=== PATIENT | female | born 1960 | race Caucasian/White ===

== ENCOUNTER → 2018-07-19 | Outpatient (CLI) | payer BC, OTHER ==
[~2018-07-19] MED LIST: ADULT LOW DOSE81 MG; ASPIRIN325; ASPIRIN325 PO; ATIVAN1 MG PO; CYMBALTA30 MG PO; DICLOFENAC POTA50 MG PO; DICLOFENAC SODI75 MG PO; FUROSEMIDE 20 M20 M1; IMDUR 30 MG TAB30 M1 PO; IRON PO; IRON325; K-DUR 20 MEQ T20 MEQ; LEVAQUIN 500 M500 M2 PO; LEXAPRO20 MG; LIPITOR 20 MG T20 M1 PO; MAVIK2 MG PO; MS CONTIN15 MG PO; NORVASC 5 MG TAB5 MG PO; OXYCONTIN CR 4040 M1; PREDNISONE50 MG PO; PREMARIN1.25 MG; PROAIR HFA8.5 GM INH; PROBIOTIC1 EAC3 PO; PROTONIX40 M2 PO; TOPAMAX 25 MG T25 M1 PG; VERAPAMIL HCL40 MG; VITAMIN D1000 UNI1 PO; VITAMIN D2000 UNIT PO
--- NOTE | 2018-07-22 17:20 | PAINCON ---
[address] [address] PAIN MANAGEMENT CONSULTATION Name: PETERSON LOO Room: [facility] [place] JOSE DavisPauline#: [id number] Admission: 07/19/18 Attend Phys: Renetta Zheng MD Discharge: Date of : 64 Report #: [id number] THIS REPORT FOR: //name// CC: Shadia Zheng DATE OF SERVICE: 07/19/2018 PRIMARY CARE PHYSICIAN: Shadia Amaral M.D. CHIEF COMPLAINT: Left hip and left leg pain. HISTORY OF PRESENT ILLNESS: The patient is a 58-year-old female who has been referred to the pain clinic for evaluation. The patient has been having pain and discomfort since 05/2018. Describes pain as an aching pain with discomfort that radiates down to the left side of her leg and into her ankle. She has a history of left hip replacement. She denies any trauma. States that she went to sleep. When she awoke, she noticed pain and discomfort in the left leg with pain that radiated down into the leg. Denies any bowel or bladder dysfunction. She has continued to do exercises to help strengthen her leg. These exercises did not change the characteristic of her pain and discomfort. She has returned to the pain clinic. She was given a Medrol Dosepak by her primary physician. Overall, she has noticed an improvement in the pain. Rates it as a 0/10. Does have some numbness and tingling in the left anterior calf area. ALLERGIES: MINOCYCLINE. CURRENT MEDICATIONS: Topiramate 50 mg b.i.d., baby aspirin 325 mg daily, vitamin D 1000 units b.i.d., biotin 1000 mcg daily, Women's energy 18/400/80 daily, Benzaclin 1% b.i.d., duloxetine 60 mg, amlodipine 5 mg, methylprednisolone 4 mg. The patient took a Medrol Dosepak, hydrocodone 5/325 mg 1 p.o. q.4-6 hours. PAST MEDICAL HISTORY: 1. Patent foramen ovale. 2. Depression. 3. Degenerative disk disease of back. 4. Hypertension. 5. GERD. 6. Migraines. 7. Anemia. 8. Arthritis. PAST SURGICAL HISTORY: Surgery x 2, , total hysterectomy, bilateral carpal tunnel release, ventral hernia repair, tonsillectomy, [place] [address] PAIN MANAGEMENT CONSULTATION Name: PETERSON LOO [facility]: [facility]#: [id number] Admission: 07/19/18 Attend Phys: Renetta Zheng MD Discharge: Date of : 64 Report #: [id number] repair, left complete hip replacement in 2016, hysterectomy was in 1991, cholecystectomy in 1984, was in 1983 and 1988, left carpal tunnel was in 1989, right carpal tunnel in 2000. SOCIAL HISTORY: She is disabled, has been disabled since 2000. REVIEW OF SYSTEMS: Generally good health, decreased appetite, wears glasses, sore throat, voice change, heart trouble, chest pain, angina, palpitations, swelling in ankles and feet, chronic frequent cough, wheezing, bowel movement, musculoskeletal joint pain, stiffness, weakness of muscles, muscle pain, cramps, back pain, difficulty walking, change in hair, varicose veins, recurrent headaches, numbness and tingling sensation in the left lower leg, depression, insomnia, slow to heal, bleeding tendencies, anemia. LABORATORY DATA: MRI of the lumbar spine dated 06/16/2018. 1. L1-L2. Small diffuse disk bulge present and there is mild facet hypertrophy. There is no spinal canal or foraminal stenosis. Thecal sac 1.4 cm AP. 2. L2-L3. Diffuse disk bulge is present eccentric to the right. Mild to moderate facet hypertrophy is present. Findings result in a mild to moderate right and mild left foraminal stenosis. Thecal sac 1.3 cm. 3. L3-L4. There is a diffuse disk bulge with a superimposed left subarticular disk protrusion. Moderate facet hypertrophy is present. These findings result in moderate right and severe left foraminal stenosis. PAIN CLINIC ASSESSMENT AND PQRS: 1. The patient is not being treated for osteoarthritis or rheumatoid arthritis. 2. Height 5 feet 5 inches, weight 262 pounds, BMI is 43. 3. Vital Signs: Blood pressure 146/80, heart rate 69, respiratory rate 18, room air saturation 96%, temperature 98.3. 4. Pain score 0 out, 0/10, but has numbness in the anterior portion of her left leg. 5. Fall risk. The patient has not fallen in the last 3 months. 6. Blood thinner. The patient is not on a blood thinning medication. 7. Hypertension. The patient has not been treated for hypertension. 8. Opioid greater than 6 weeks. The patient is not receiving opioid medications on a long-term basis. 9. Risk assessment tool, low for opioid use. 9. Functional assessment tool. 10. Recreational drug use. The patient denies. 11. Tobacco: The patient denies. 12. Alcohol: The patient denies frequent use of alcoholic beverages. PHYSICAL EXAMINATION: GENERAL: The patient is a well-developed, somewhat obese, white female. Appears her stated age. She is alert and oriented x 3. Affect is appropriate. [address] [address] PAIN MANAGEMENT CONSULTATION Name: PETERSON LOO Room: [facility] [place] JOSE DavisPauline#: [id number] Admission: 07/19/18 Attend Phys: Renetta Zheng MD Discharge: Date of : 64 Report #: [id number] Speech is fluent. HEENT: Normocephalic, atraumatic. Extraocular eye muscles intact. Sclerae nonicteric. Mucous membranes are moist. NECK: Without adenopathy or JVD. The patient without significant scoliosis, kyphosis or lordosis. EXTREMITIES: Has pain and discomfort involving the low back area in the area of her left hip with pain that radiated down into the left L5 dermatomal distribution. The patient has some pain and discomfort. The patient has some discomfort in the anterior left L4-L5 dermatomal distribution on her left leg. There is some numbness and tingling in this distribution down to the level of her ankle. IMPRESSION: 1. Left leg pain, which has improved and now is rated as 0, but still has numbness in the L5 left dermatomal distribution. 2. Hypertension. 3. Colon problems. 4. Heart disease. 5. History of anemia. RECOMMENDATIONS: We discussed treatment options with the patient. At this juncture, she feels that her pain has continued to improve. Noted that the Medrol Dosepak was efficacious. She is not having significant amount of pain at this juncture. She indeed rates her pain as a 0/10. Does continue to have some numbness in the anterior portion in the L4-L5 distribution. The patient could try another conservative approach with another Medrol Dosepak in the future. Her pain continued to be a problem with numbness in this area. We could consider an epidural steroid injection. The patient will continue with her current medical regimen. She will consider use of nonsteroidal anti-inflammatory medication such as ibuprofen 800 mg 1 p.o. t.i.d. for 1 week. She will call us if she continues to have pain or notes recurrence of her pain. We would like to thank you for letting us participate in her care. We hope she continues to improve. <ELECTRONICALLY SIGNED> By: Renetta Zheng MD 07/22/18 1720 1541 [id number]. Davion Zheng MD /[facility]
== END ==
LOC: M.PC 05:25
DX: M25.552 Pain in left hip (principal); M79.605 Pain in left leg; I11.9 Hypertensive heart disease without heart failure; K63.9 Disease of intestine, unspecified; Z86.2 Personal history of diseases of the blood and blood-forming organs and certain disorders involving the immune mechanism

== ENCOUNTER → 2019-01-11 | Day surgery (SDC) | payer BC, OTHER ==
[~2019-01-11] MED LIST changes: +ABILIFY10 MG PO; +CENTRUM SILVER1 EAC4 PO; +CYMBALTA60 MG PO; +NORCO 5-325 TA1 EACH PO; +SINGULAIR 10 MG10 M1 PO; -TOPAMAX 25 MG T25 M1 PG; +TOPAMAX 25 MG T25 M1 PO; +TRANDOLAPRIL4 MG PO
--- NOTE | ~2019-01-11 | OP ---
[facility] [address] [place] [address] OPERATIVE REPORT Name: PETERSON LOO Room: [facility] Simon.Fay.#: [id number] Admission: 01/11/19 Attend Phys: Anastacio Smith Discharge: Date of : 64 Report #: [id number] THIS REPORT FOR: //name// CC: Anastacio Amaral DATE OF SERVICE: 01/11/2019 PREOPERATIVE DIAGNOSIS: Recurrent incarcerated ventral incisional hernia. POSTOPERATIVE DIAGNOSIS: Recurrent incarcerated ventral incisional hernia. PROCEDURE: Laparoscopic repair of recurrent incarcerated ventral incisional hernia with mesh. SURGEON: Anastacio Smith M.D. ANESTHESIA: General. ESTIMATED BLOOD LOSS: Minimal. SPECIMENS: Old mesh. DESCRIPTION OF PROCEDURE: After informed consent was obtained, the patient was brought to the operating room and placed supine. SCDs were placed and working. Preoperative antibiotics were administered, general anesthesia was induced. The abdomen was prepped and draped in the usual sterile fashion. A 5 mm incision was made in the left upper quadrant. A 5 mm trocar was placed under direct vision. Pneumoperitoneum was established. Left-sided 8 mm and 5 mm ports were placed. A right-sided 5 mm port was placed. She had incarcerated omentum in the defect around her umbilicus. This was a Mexican cheese type defect with approximately 3 defects. The defects measured approximately 5 x 5 cm altogether. The omentum was fully reduced. There was some old mesh that was in this area. I elected to remove it as it was just hanging there and not doing anything. This mesh had obviously migrated from the above more superior hernia repair that she had in 2003. This was incised with scissors and removed. It was sent as a specimen. A Ventralight mesh was brought into the field. This was trimmed to 15 x 15 cm. It was brought into the abdomen. It was brought up to the abdominal wall to cover the defects widely. I used 2 secure strap tackers to circumferentially tack around the mesh to keep it in place. Four transfascial 2-0 Ethibond sutures were placed using the suture passer. The defects were covered very widely. The [place] [address] OPERATIVE REPORT Name: PETERSON LOO CARLOS [id number] Admission: 01/11/19 Attend Phys: Anastacio Smith Discharge: Date of : 64 Report #: [id number] The ports were then removed under direct vision. The skin was closed with 4-0 Monocryl. Incisions were sealed with Dermabond. COMPLICATIONS: None. DISPOSITION: The patient was taken to recovery in satisfactory condition. By: [id number] Smith MD /nt
[2019-01-11 08:45] LABS: HEMATOCRIT 39.3 % (37.0-47.0); HEMOGLOBIN 13.1 gm/dL (12.0-15.0); MCH 28.7 pg (26.0-34.0); MCHC 33.5 g/dL (28.0-37.0); MCV 85.8 fL (80.0-100.0); MPV 6.9 fl. (7.2-11.1); RBC 4.58 mil/uL (4.20-5.00); RDW-CV 13.5 % (10.5-14.5); WBC 6.3 thou/uL (4.0-11.0)
[2019-01-11 08:53] LABS: CALCIUM 9.6 mg/dL (8.5-10.1); CREATININE 0.9 mg/dL (0.6-1.3)
--- NOTE | 2019-01-11 11:31 | EKG ---
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
--- NOTE | 2019-01-13 10:06 | PATH ---
[address] [address] PATHOLOGY RPT PROCEDURE Name: PETERSON LOO CARLOS Room: [facility] M.R.#: [id number] Admission: 01/11/19 Date of : 64 Discharge: Report #: [id number] Path Case #: [id number] [facility] Accession Number: [id number] . 01 Material submitted: . hernia - MESH . 01 Clinical history: . Ventral hernia . 02 Diagnosis: Gross diagnosis (mesh): - Mesh identified. (ADELA:pit 01/12/2019) QTP/01/12/2019 . 02 Electronically signed: . Xander Chavez MD, Pathologist NPI- [id number] . 01 Gross description: . The specimen is received in formalin, labeled "Peterson Strong, mesh". Received is a segment of white-robb mesh with a slight amount of adherent soft tissue measuring 4.8 x 2.0 x 1.5 cm in greatest dimensions. Gross photographs are taken. Sections are not submitted. (CAA; 01/12/2019) QAC/QAC . 02 Pathologist provided ICD-10: K43.9 . 02 CPT . 353166 Specimen Comment: A courtesy copy of this report has been sent to Specimen Comment: [phone], . Specimen Comment: Report sent to / DR GOMEZ Performed at: [address] [facility] [address], [place], [place] [id number] MD Cooper Sarkar MD Phone: [phone] Performed at: 02 [facility] [address] [place], [place] [id number] MD Xander Chavez MD Phone: [phone]
== END | disposition home or self-care (01) ==
LOC: M.SUR 08:17
PROVIDERS: Family Medicine
DX: K43.0 Incisional hernia with obstruction, without gangrene (principal); I10 Essential (primary) hypertension; F41.9 Anxiety disorder, unspecified; K21.9 Gastro-esophageal reflux disease without esophagitis; Z90.710 Acquired absence of both cervix and uterus; Z98.890 Other specified postprocedural states; Z79.82 Long term (current) use of aspirin; Z79.899 Other long term (current) drug therapy; Z90.49 Acquired absence of other specified parts of digestive tract; Z88.8 Allergy status to other drugs, medicaments and biological substances; Z86.73 Personal history of transient ischemic attack (TIA), and cerebral infarction without residual deficits; Z82.49 Family history of ischemic heart disease and other diseases of the circulatory system

== ENCOUNTER 2020-10-13 17:35 | Emergency (ER) | payer OTHER ==
[~2020-10-13] VITALS: Ht 165.1 cm; Wt 134.7 kg
[2020-10-13 18:07] LABS: ABSOLUTE BASOPHILS 0.1 thou/uL (0.0-0.2); ABSOLUTE EOSINOPHILS 0.2 thou/uL (0.0-0.7); ABSOLUTE LYMPHOCYTES 2.6 thou/uL (0.8-5.3); ABSOLUTE MONOCYTES 0.4 thou/uL (0.0-1.2); ABSOLUTE NEUTROPHILS 4.2 thou/uL (1.6-8.1); BASOPHILS 0.7 %; EOSINOPHILS 3.3 %; HEMATOCRIT 36.8 % (37.0-47.0); HEMOGLOBIN 12.4 gm/dL (12.0-15.0); LYMPHOCYTES 34.1 %; MCH 28.9 pg (26.0-34.0); MCHC 33.6 g/dL (28.0-37.0); MCV 85.9 fL (80.0-100.0); MONOCYTES 5.2 %; MPV 6.2 fl. (7.2-11.1); NUCLEATED RBCS 0 /100WBC; PLATELET COUNT* 257 thou/uL (150-400); POLYS 56.7 %; RBC 4.29 mil/uL (4.20-5.00); RDW-CV 13.9 % (10.5-14.5); WBC 7.5 thou/uL (4.0-11.0)
[2020-10-13] MEDS ORDERED: DOXYCYCLINE 10100 M2 PO (18:07)
[2020-10-13] MEDS ORDERED: HYDROCHLOROTHIA25 M2 (18:07)
[2020-10-13] MEDS ORDERED: [UNRECOGNIZED DRUG - OTHER] (18:08)
[2020-10-13] MEDS ORDERED: DRIZALMA SPRINK60 MG PO (18:08)
[2020-10-13] MEDS ORDERED: BIOTIN1 MG PO (18:08)
[2020-10-13] MEDS ORDERED: VITAMIN C500 M2 PO (18:09)
[2020-10-13] MEDS ORDERED: VITAMIN B-121000 MC2 SUBLING (18:09)
[2020-10-13 18:18] LABS: CALCIUM 9.4 mg/dL (8.5-10.1); CREATININE 1.1 mg/dL (0.6-1.3); POTASSIUM 3.2 mmol/L (3.5-5.1)
[2020-10-13 18:21] LABS: APTT 23.7 Seconds (25.0-31.3); PROTIME 10.3 Seconds (9.20-11.50)
[2020-10-13 18:31] LABS: ALBUMIN 3.7 g/dL (3.4-5.0); CK-MB MASS 2.9 ng/mL (<0.5-3.6); TOTAL BILIRUBIN 0.2 mg/dL (<0.1-1.0); TOTAL PROTEIN 7.1 g/dL (6.4-8.2)
[2020-10-13 18:42] VITALS: BP 174/77
--- NOTE | 2020-10-14 11:12 | EKG ---
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1960 Requested By: Sadi Aguilera Order Number: [id number] MD: Truman López Measurements Intervals [place] Rate: 78 P: 55 ID: 179 QRS: 54 QRSD: 104 T: 53 QT: 385 QTc: 439 Interpretive Statements Sinus rhythm septal waves Low voltage, precordial leads Compared to ECG 01/11/2019 08:39:40 No significant changes Electronically Signed On 10-14-2020 11:11:52 OBIEE REPORT DEVELOPER by Truman López [email or web address] <ELECTRONICALLY SIGNED> By: Truman López MD, FAC 10/14/20 1111 1743 1743 Truman López MD, [facility] /EPI
== END 2020-10-13 18:43 | disposition home or self-care (01) ==
LOC: M.ERS 17:35
PROVIDERS: Family Medicine
DX: R07.89 Other chest pain (principal); I10 Essential (primary) hypertension; K21.9 Gastro-esophageal reflux disease without esophagitis; G47.30 Sleep apnea, unspecified; Z98.890 Other specified postprocedural states; Z90.710 Acquired absence of both cervix and uterus; Z86.73 Personal history of transient ischemic attack (TIA), and cerebral infarction without residual deficits; Z86.2 Personal history of diseases of the blood and blood-forming organs and certain disorders involving the immune mechanism

== ENCOUNTER 2021-03-21 09:25 | Emergency (ER) | payer OTHER ==
[~2021-03-21] VITALS: Ht 165.1 cm; Wt 124.7 kg
[~2021-03-21 09:25] MED LIST changes: +BIOTIN1 MG PO; +DOXYCYCLINE 10100 M2 PO; +DRIZALMA SPRINK60 MG PO; +HYDROCHLOROTHIA25 M2; +VITAMIN B-121000 MC2 SUBLING; +VITAMIN C500 M2 PO; +[UNRECOGNIZED DRUG - OTHER]
[2021-03-21] MEDS ORDERED: ASA81BEC PO (09:35)
[2021-03-21] MEDS ORDERED: LISINOPRIL10 MG PO (09:36)
[2021-03-21] MEDS ORDERED: TOPAMAX100 MG PO (09:36)
[2021-03-21] MEDS ORDERED: TRULICITY0.75 MG/0. SUBQ (09:37)
[2021-03-21 10:15] LABS: URINE BILIRUBIN NEGATIVE (Negative); URINE BLOOD NEGATIVE (Negative); URINE CLARITY CLEAR; URINE COLOR YELLOW; URINE GLUCOSE-RANDOM NEGATIVE (Negative); URINE KETONES NEGATIVE (Negative); URINE LEUKOCYTES NEGATIVE (Negative); URINE NITRITE NEGATIVE (Negative); URINE PROTEIN NEGATIVE (Negative); URINE UROBILINOGEN 0.2 E.U./dl (0.2-1.0)
--- NOTE | 2021-03-21 10:23 | EKG ---
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
[2021-03-21 11:19] LABS: CALCIUM 9.9 mg/dL (8.5-10.1); CREATININE 1.1 mg/dL (0.6-1.3); POTASSIUM 3.2 mmol/L (3.5-5.1)
[2021-03-21 11:24] LABS: ALBUMIN 4.2 g/dL (3.4-5.0); TOTAL BILIRUBIN 0.3 mg/dL (<0.1-1.0); TOTAL PROTEIN 7.6 g/dL (6.4-8.2)
[2021-03-21 11:25] LABS: ABSOLUTE BASOPHILS 0.1 thou/uL (0.0-0.2); ABSOLUTE EOSINOPHILS 0.3 thou/uL (0.0-0.7); ABSOLUTE LYMPHOCYTES 2.8 thou/uL (0.8-5.3); ABSOLUTE MONOCYTES 0.5 thou/uL (0.0-1.2); ABSOLUTE NEUTROPHILS 4.4 thou/uL (1.6-8.1); BASOPHILS 0.9 %; EOSINOPHILS 3.8 %; HEMATOCRIT 40.4 % (37.0-47.0); HEMOGLOBIN 13.2 gm/dL (12.0-15.0); LYMPHOCYTES 34.5 %; MCH 28.3 pg (26.0-34.0); MCHC 32.6 g/dL (28.0-37.0); MCV 86.8 fL (80.0-100.0); MONOCYTES 6.2 %; MPV 6.7 fl. (7.2-11.1); NUCLEATED RBCS 0 /100WBC; PLATELET COUNT* 270 thou/uL (150-400); POLYS 54.6 %; RBC 4.65 mil/uL (4.20-5.00); RDW-CV 13.8 % (10.5-14.5)
[2021-03-21 12:17] VITALS: BP 141/70
== END 2021-03-21 12:18 | disposition home or self-care (01) ==
LOC: M.ERS 09:25
PROVIDERS: Emergency Medicine
DX: R53.1 Weakness (principal); Z20.822 Contact with and (suspected) exposure to COVID-19; I10 Essential (primary) hypertension; K21.9 Gastro-esophageal reflux disease without esophagitis; G47.30 Sleep apnea, unspecified; Z90.710 Acquired absence of both cervix and uterus; Z98.890 Other specified postprocedural states; Z90.49 Acquired absence of other specified parts of digestive tract; Z86.73 Personal history of transient ischemic attack (TIA), and cerebral infarction without residual deficits; Z86.2 Personal history of diseases of the blood and blood-forming organs and certain disorders involving the immune mechanism; Z88.6 Allergy status to analgesic agent; Z88.1 Allergy status to other antibiotic agents